=== PATIENT | male | born 1985 | race Caucasian/White ===

== ENCOUNTER 2017-04-26 12:00 | Emergency (ER) | payer SELFPAY ==
--- NOTE | 2017-04-26 12:22 | CPEKG ---
Heart Rate: 60 RR Interval: 1000 P-R Interval: 136 QRSD Interval: 86 QT Interval: 396 QTC Interval: 396 P Flint: 56 QRS [place]: 68 T Wave Flint: 74 EKG Severity - NORMAL ECG - EKG Impression: SINUS RHYTHM Electronically Signed By: Forrest Gillis 26-Apr-2017 14:49:24
--- NOTE | 2017-04-26 13:08 | EDPHY ---
H & P Time Seen by Provider: 04/26/17 12:56 HPI/ROS: CHIEF COMPLAINT: Chest pain, Left arm paresthesia HISTORY OF PRESENT ILLNESS: The patient is a 31-year-old male with history of chronic pain who presents with acute chest pain and left arm paresthesia. The patient developed left arm numbness last night while lying in bed. The numbness has been intermittent since onset. The patient states "my whole arm is numb down to my fingertips" currently. While at work today he developed centralized chest pain. The chest pain is worse with deep inhalation. No change with exertion. The patient states he has a history of untreated lung cancer diagnosed at age 24. He continues to smoke cigarettes daily. REVIEW OF SYSTEMS: A comprehensive 10 point review of systems is otherwise negative aside from elements mentioned in the history of present illness. Past Medical/Surgical History: Depression, PTSD, Previous back injury T6, T5, T3 with chronic pain, Reported lung cancer, no biopsy. Social History: Current cigarette smoker. Denies drug use. 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 Smoking Status: Current every day smoker Physical Exam: General Appearance: Appears in pain, taking deep inspirations, feet and hands are very dirty appearing Eyes: Pupils equal and round, no conjunctival pallor or injection ENT, Mouth: Mucous membranes moist Neck: Normal inspection Respiratory: Lungs are clear to auscultation Cardiovascular: Regular rate and rhythm Gastrointestinal: Abdomen is soft and non-tender Neurological: A&O, motor 5/5, sensory intact to light touch, normal gait Vascular: 2+ radial pulses Skin: Warm and dry, no rash Extremities: Nontender, no swelling Psychiatric: Mood and affect normal Constitutional: Initial Vital Signs Temperature (C) 36.6 C 04/26/17 12:05 Heart Rate 65 04/26/17 12:05 Blood Pressure 129/88 H 04/26/17 12:05 O2 Sat (%) 93 04/26/17 12:05 O2 Delivery Mode Room Air Allergies/Adverse Reactions: COCONUT Allergy (Unknown, Uncoded 04/26/17 12:03) Home Medications: Medication Instructions Recorded Prazosin HCl [Minipress 1mg (*)] 1 mg PO HS 05/16/16 Sertraline HCl [Zoloft 25mg (*)] 25 mg PO DAILY 05/16/16 Medical Decision Making - Diagnostics EKG Interpretation: EKG interpreted by me reveals normal sinus rhythm, normal axis and intervals, no ST or T segment changes. Impression: Normal EKG Imaging Results: Imaging Impressions Chest X-Ray 04/26/17 13:09 Impression: Normal chest. Imaging: I viewed and interpreted images myself ED Course/Re-evaluation: Patient with history of chronic pain presents with chest pain and left arm paresthesia. The patient appears in pain and is taking deep inspiration. He denies cough or congestion. I reviewed the patient's old records from April 2016, CT of the chest was normal at that time. Plan to chest chest x-ray, EKG, and BMP. Tylenol given for pain. Clinically, I do not suspect acute pulmonary embolism in this patient. He has no risk factors for pulmonary embolism and normal vital signs. In addition, I do not suspect acute coronary syndrome, with atypical pain, prolonged symptoms and normal EKG. Chest x-ray reveals no evidence of pneumonia or pneumothorax. Results discussed with the patient. Toradol 15 mg IV given prior to discharge. Most likely musculoskeletal etiology of discomfort. I feel the patient is safe to go home at this time. Differential Diagnosis: Differential diagnosis includes though it is not limited to pneumonia, pneumothorax, pulmonary embolism, aortic dissection, pericarditis, acute coronary syndrome. - Data Points Laboratory Results: Laboratory Results 04/26/17 13:22 04/26/17 13:22 04/26/17 04/26/17 13:22 13:22 WBC 7.62 10^3/uL 10^3/uL (3.80-9.50) RBC 5.12 10^6/uL 10^6/uL (4.40-6.38) Hgb 16.6 g/dL g/dL (13.7-17.5) Hct 47.8 % % (40.0-51.0) MCV 93.4 fL fL (81.5-99.8) MCH 32.4 pg pg (27.9-34.1) MCHC 34.7 g/dL g/dL (32.4-36.7) RDW 11.9 % % (11.5-15.2) Plt Count 208 10^3/uL 10^3/uL (150-400) MPV 8.7 fL fL (8.7-11.7) Neut % (Auto) 72.0 % % (39.3-74.2) Lymph % (Auto) 21.3 % % (15.0-45.0) [place] % (Auto) 6.0 % % (4.5-13.0) Eos % (Auto) 0.3 % L % (0.6-7.6) Baso % (Auto) 0.1 % L % (0.3-1.7) Nucleat RBC Rel Count 0.0 % % (0.0-0.2) Absolute Neuts (auto) 5.49 10^3/uL 10^3/uL (1.70-6.50) Absolute Lymphs (auto) 1.62 10^3/uL 10^3/uL (1.00-3.00) Absolute Monos (auto) 0.46 10^3/uL 10^3/uL (0.30-0.80) Absolute Eos (auto) 0.02 10^3/uL L 10^3/uL (0.03-0.40) Absolute Basos (auto) 0.01 10^3/uL L 10^3/uL (0.02-0.10) Absolute Nucleated RBC 0.00 10^3/uL 10^3/uL (0-0.01) Immature Gran % 0.3 % % (0.0-1.1) Immature Gran # 0.02 10^3/uL 10^3/uL (0.00-0.10) Sodium 142 mEq/L mEq/L (134-144) Potassium 4.2 mEq/L mEq/L (3.5-5.2) Chloride 105 mEq/L mEq/L (97-110) Carbon Dioxide 24 mEq/l mEq/l (22-31) Anion Gap 13 mEq/L mEq/L (8-16) BUN 18 mg/dL mg/dL (7-23) Creatinine 0.8 mg/dL mg/dL (0.7-1.3) Estimated GFR > 60 Glucose 83 mg/dL mg/dL (70-100) Calcium 9.6 mg/dL mg/dL (8.5-10.4) Medications Given: Discontinued Medications Acetaminophen (Tylenol) 650 mg PO EDNOW ONE Stop: 04/26/17 14:04 Last Admin: 04/26/17 14:07 Dose: 650 mg Ketorolac Tromethamine (Toradol) 15 mg IVP EDNOW ONE Stop: 04/26/17 14:22 Last Admin: 04/26/17 14:25 Dose: 15 mg Departure - Departure Disposition: Home, Routine, Self-Care Clinical Impression: Chest pain Qualifiers: Chest pain type: chest pain on breathing Qualified Code(s): R07.1 - Chest pain on breathing Condition: Good Instructions: Chest Pain (ED) Additional Instructions: [facility] has walk-in appointments for the homeless at the following days/locations. No appointment is needed. Friday 8-10 am @ [facility] 11 AM-1 PM @ [facility] Friday 8-10:30 AM @ [facility] Friday 8-10 AM @ [facility] 2-4 PM @ [facility] Friday 8-10 AM @ [facility] Referrals: [facility],. [Clinic] - As per Instructions Report Scribed for: Yaquelin Ray Report Scribed by: Eva Hector Date of Report: 04/26/17 Time of Report: 12:58 Physician Review and Approval Statement: 04/26/17 12:58 Portions of this note were transcribed by a health care / medical job titles. I personally performed the history, physical exam, and medical decision-making; and confirmed the accuracy of the information in the transcribed note.
[2017-04-26 13:33] LABS: % IMMATURE GRANULYOCYTES 0.3 % (0.0-1.1); ABSOLUTE IMMATURE GRANULOCYTES 0.02 10^3/uL (0.00-0.10); ADD DIFF? NO; ADD MORPH? NO; ADD SCAN? NO; ATYPICAL LYMPHOCYTE FLAG 0 (0-99); FRAGMENT RBC FLAG 0 (0-99); HEMATOCRIT 47.8 % (40.0-51.0); HEMOGLOBIN 16.6 g/dL (13.7-17.5); LEFT SHIFT FLG 0 (0-99); LIPEMIA HEMOLYSIS FLAG 90 (0-99); MEAN CELL HEMOGLOBIN 32.4 pg (27.9-34.1); MEAN CELL HEMOGLOBIN CONCENTR. 34.7 g/dL (32.4-36.7); MEAN CELL VOLUME 93.4 fL (81.5-99.8); MEAN PLATELET VOLUME 8.7 fL (8.7-11.7); PLATELET CLUMPS FLAG 0 (0-99); PLATELET COUNT 208 10^3/uL (150-400); RED BLOOD CELL COUNT 5.12 10^6/uL (4.40-6.38); RED CELL DISTRIBUTION WIDTH 11.9 % (11.5-15.2)
[2017-04-26 14:02] LABS: ANION GAP 13 mEq/L (8-16); CALCIUM 9.6 mg/dL (8.5-10.4); CARBON DIOXIDE 24 mEq/l (22-31); CHLORIDE 105 mEq/L (97-110); CREATININE 0.8 mg/dL (0.7-1.3); GLOMERULAR FILTRATION RATE > 60; GLUCOSE 83 mg/dL (70-100); POTASSIUM 4.2 mEq/L (3.5-5.2); SODIUM 142 mEq/L (134-144)
[2017-04-26] MEDS ORDERED: ACETAMINOPHEN 325 MG TAB PO ONE (14:03)
[2017-04-26 14:13] VITALS: BP 119/76; PULSE 67; RESP 16; O2SAT 97
[2017-04-26] MEDS ORDERED: KETOROLAC 15 MG/1 ML SDV IVP ONE (14:21)
[2017-04-26 14:49] VITALS: TEMP 98.2
== END 2017-04-26 15:05 | disposition home or self-care (01) ==
DX: R07.1 Chest pain on breathing (principal); F17.210 Nicotine dependence, cigarettes, uncomplicated
CPT/HCPCS: 96374; J1885

== ENCOUNTER 2017-12-23 23:11 | Emergency (ER) | payer SELFPAY ==
[2017-12-23] MEDS ORDERED: KETOROLAC 15 MG/1 ML SDV ONE (23:29)
[2017-12-23] MEDS ORDERED: KETOROLAC 15 MG/1 ML SDV IVP ONE (23:30)
[2017-12-23 23:46] LABS: PLATELET COUNT 256 10^3/uL (150-400)
[2017-12-23 23:58] LABS: INR 0.97 (0.83-1.16); PROTIME(PATIENT) 13.1 SEC (12.0-15.0)
[2017-12-24] MEDS ORDERED: IOPAMIDOL (ISOVUE-300) 100 ML BTL ONE (00:07)
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
[2017-12-24 01:47] VITALS: BP 121/74
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
== END 2017-12-24 01:47 | disposition home or self-care (01) ==
LOC: MERGE 23:11
DX: S40.211A Abrasion of right shoulder, initial encounter (principal); F10.129 Alcohol abuse with intoxication, unspecified; J44.9 Chronic obstructive pulmonary disease, unspecified; F17.200 Nicotine dependence, unspecified, uncomplicated; V13.4XXA Pedal cycle driver injured in collision with car, pick-up truck or van in traffic accident, initial encounter; Y92.410 Unspecified street and highway as the place of occurrence of the external cause; Y99.8 Other external cause status; Y93.55 Activity, bike riding
CPT/HCPCS: 82435-PO; 82565-PO; 82947-PO; 84132-PO; 84295-PO; 84520-PO; 85014-PO; 96374; G0480; J1885; Q9967

== ENCOUNTER 2017-12-31 18:23 | Emergency (ER) | payer SELFPAY ==
--- NOTE | 2017-12-31 18:24 | EDPHY ---
H & P Time Seen by Provider: 12/31/17 18:26 Constitutional: Initial Vital Signs Temperature (C) 37.3 C 12/31/17 18:23 Heart Rate 123 H 12/31/17 18:23 Respiratory Rate 88 H 12/31/17 18:23 Blood Pressure 132/80 H 12/31/17 18:23 O2 Delivery Mode Nasal Cannula O2 (L/minute) 2 Allergies/Adverse Reactions: COCONUT Allergy (Unknown, Uncoded 12/31/17 18:32) Home Medications: Medication Instructions Recorded Prazosin HCl [Minipress 1mg (*)] 1 mg PO HS 05/16/16 Sertraline HCl [Zoloft 25mg (*)] 25 mg PO DAILY 05/16/16 Medical Decision Making ED Course/Re-evaluation: CHIEF COMPLAINT: Alcohol intoxication. 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 Patient drinks on a daily basis and obtains whatever alcohol is available. Patient was found by bystanders who called EMS system and was placed on an M1 hold by [employer]. He is currently combative, even after 5mg IM Versed. It is unsure what drugs or alcohol the patient took. Patient has had multiple ER visits over the last several years for the same complaint. Patient denies any injuries denies loss of consciousness denies any recent trauma. Patient denies suicidal or homicidal behavior. REVIEW OF SYSTEMS: A 10 point review of systems was performed and is negative with the exception of the elements mentioned in the history of present illness. PHYSICAL EXAM: General Appearance: Intoxicated, combative, and disheveled. Head: Atraumatic without scalp tenderness or obvious injury Eyes: Pupils equal, round, reactive to light and accommodation, EOMI, no trauma , no injection. Ears: Clear bilaterally, no perforation, normal landmarks Nose: Atraumatic, no rhinorrhea, clear. Throat: There is no erythema or exudates, no lesions, normal tonsils, mucus membranes moist. Neck: Supple, 2+ carotid upstroke, nontender, no lymphadenopathy. Respiratory: No retractions, no distress, no wheezes, and no accessory muscle use. Lungs are clear to auscultation bilaterally. Cardiovascular: Regular rate and rhythm, no murmurs, rubs, or gallops. Bilateral carotid, radial, dorsalis pedis, and posterior tibial pulses intact. Good capillary refill all extremities. Gastrointestinal: Abdomen is soft, nontender, non-distended, no masses, no rebound, no guarding, no peritoneal signs. Musculoskeletal: Normal active ROM of all extremities, atraumatic. Neurological: Alert, appropriate, and interactive. The patient has normal DTRs and non-focal cranial nerves, motor, sensory, and cerebellar exam. Skin: No rashes, good turgor, no nodules on palpation. PAST MEDICAL HISTORY: Polysubstance abuse PAST SURGICAL HISTORY: Denies SOCIAL HISTORY: Transient, single, polysubstance abuse DIFFERENTIAL DIAGNOSIS: The differential diagnosis for the patient's altered mental status included but was not limited to hypoglycemia, infectious process, electrolyte abnormality, head injury, neurologic process, anemia, cardiac process, and intoxicants. MEDICAL DECISION MAKING: The patient is a 32 y/o male arriving via EMS on an M1 hold who is on an unknown substance. He is combative and intoxicated. Restraints placed; 2mg IM Ativan, 50mg IM Benadryl, and 10mg IM Haldol administered. 1824: I met EMS upon arrival. I serially examined this patient since the patient's arrival here in the emergency department. The patient continues to become more and more sober with each examination. 2030: I have dropped the M1 hold. This patient does not meet criteria for an M1 hold. He is not suicidal homicidal or gravely disabled. He is a polysubstance abuser and once he sobered up we will figure out the best options for placement in an [facility]. 2030: Patient care turned over to Dr. Street at shift change. (Chris Henry) 10:45 p.m. the patient is sleeping comfortably. We continue to await sobriety. Plan to transfer to the arc. Care transferred to Dr. Tang at shift change. (Jordon Street) - Data Points Medications Given: Discontinued Medications Diphenhydramine HCl (Benadryl Injection) 50 mg IVP EDNOW ONE Stop: 12/31/17 18:50 Last Admin: 12/31/17 18:35 Dose: 50 mg Haloperidol Lactate (Haldol Injection) 10 mg IVP EDNOW ONE Stop: 12/31/17 18:36 Last Admin: 12/31/17 18:51 Dose: 10 mg Lorazepam (Ativan Injection) 2 mg IVP EDNOW ONE Stop: 12/31/17 18:36 Last Admin: 12/31/17 18:51 Dose: 2 mg Departure - Departure Disposition: Home, Routine, Self-Care Clinical Impression: Polysubstance abuse Alcohol intoxication Qualifiers: Complication of substance-induced condition: uncomplicated Qualified Code(s): F10.920 - Alcohol use, unspecified with intoxication, uncomplicated Condition: Good Instructions: Alcohol Intoxication (ED), Abuse of Alcohol (ED), Polysubstance Abuse (ED) Additional Instructions: 1. Please refrain from abusing drugs. 2. Return to the emergency department immediately for fever, vomiting, confusion , headache, abdominal pain or other worsening of condition. 3. Followup with your primary care physician within 72 hours for reevaluation. Referrals: [facility] [Outside] - As per Instructions Report Scribed for: Chris Henry Report Scribed by: Toshia Jansen Date of Report: 12/31/17 Time of Report: 18:25
[2017-12-31] MEDS ORDERED: HALOPERIDOL LACT 5 MG/ML INJ IVP ONE (18:35)
[2017-12-31] MEDS ORDERED: LORazepam 2 MG/ML INJ IVP ONE (18:35)
[2017-12-31] MEDS ORDERED: HALOPERIDOL LACT 5 MG/ML INJ ONE (18:43)
[2017-12-31] MEDS ORDERED: LORazepam 2 MG/ML INJ ONE (18:43)
[2018-01-01 08:39] VITALS: BP 133/91
== END 2018-01-01 09:47 | disposition home or self-care (01) ==
LOC: EDBD → EDUNIT# → EEVIPCON 18:23
DX: F10.920 Alcohol use, unspecified with intoxication, uncomplicated (principal); F19.10 Other psychoactive substance abuse, uncomplicated
CPT/HCPCS: 96374; J1200; J1630; J2060